=== PATIENT | male | born 1990 | race Caucasian/White ===

== ENCOUNTER 2019-10-23 13:36 | Inpatient (IN) | payer MEDICAID ==
[~2019-10-23] VITALS: Ht 172.7 cm; Wt 68.7 kg
[2019-10-23] MEDS ORDERED: SODIUM CHLORIDE 0.9% 2,150 ML IV ONE (13:53)
[2019-10-23 14:29] LABS: BASOPHILS % (AUTO) 0.1 % (0.0-2.0); EOSINOPHILS % (AUTO) 0 % (1.0-6.0); HEMATOCRIT 39.7 % (41-53); HEMOGLOBIN 13.2 g/dL (13.5-17.5); LYMPHOCYTES # (AUTO) 1.4 K/uL (1.0-4.8); MEAN CORPUSCULAR HEMOGLOBIN 29.9 pg (26.0-34.0); MEAN CORPUSCULAR HGB CONC 33.2 G/dL (31.0-37.0); MEAN CORPUSCULAR VOLUME 90 fL (80-100); MONOCYTES # (AUTO) 0.4 K/uL (0.1-1.0); MONOCYTES % (AUTO) 2.2 % (2.0-9.0); NEUTROPHILS % (AUTO) 89.7 % (40.0-70.0); PLATELET COUNT (AUTO) 377 K/uL (150-450); RED BLOOD CELL COUNT(AUTO) 4.41 MIL/uL (4.50-5.90); RED CELL DISTRIBUTION WIDTH 12.1 % (11.5-14.5)
[2019-10-23 14:39] LABS: ANION GAP 13 mmol/L (8-16); CARBON DIOXIDE 24 mmol/L (22-29); CHLORIDE 99 mmol/L (98-107); CREATININE 0.88 mg/dL (0.60-1.30); GLOMERULAR FILTR. RATE CALC > 60 mL/min (>60); GLUCOSE,RANDOM 139 mg/dL (70-110); POTASSIUM 3.6 mmol/L (3.5-5.1); SODIUM SERUM 136 mmol/L (136-145); UREA NITROGEN, BLOOD 10 mg/dL (7-18)
[2019-10-23 14:43] LABS: INR 1.2 (0.9-1.1); PROTHROMBIN TIME 11.8 SEC (9.4-11.6)
[2019-10-23 14:45] LABS: ALANINE AMINOTRANSFERASE 51 U/L (12-78); ALBUMIN 3.2 g/dL (3.4-5.0); ALKALINE PHOSPHATASE 131 U/L (46-116); ASPARTATE AMINOTRANSFERASE 44 U/L (15-37); BILIRUBIN,TOTAL 0.5 mg/dL (0.1-1.0); TOTAL PROTEIN, SERUM 8.2 g/dL (6.4-8.2)
[2019-10-23 14:47] LABS: LACTIC ACID 0.5 mmol/L (0.4-2.0)
[2019-10-23 14:54] LABS: APPEARANCE,URINE CLEAR (CLEAR); GLUCOSE, URINE (UA) NEGATIVE (NEGATIVE); KETONES,URINE TRACE mg/dL (NEGATIVE); LEUKOCYTE ESTERASE ,URINE NEGATIVE (NEGATIVE); NITRATE,URINE NEGATIVE (NEGATIVE); OCCULT BLOOD,URINE TRACE (NEGATIVE); PROTEIN,URINE SEE CONFIRM (NEGATIVE)
[2019-10-23] MEDS ORDERED: ACETAMINOPHEN 500 MG TABLET PO ONE (15:00)
[2019-10-23] MEDS ORDERED: CefTRIAXone SODIUM 2 GM in DEXTROSE 5%-WATER 50 ML IV ONE (15:00)
[2019-10-23] MEDS ORDERED: AZITHROMYCIN 500 MG/NS 250 ML IV ONE (15:00)
[2019-10-23 15:03] LABS: B-TYPE NATRIURETIC PEPTIDE 20 pg/mL (0-100)
[2019-10-23 15:14] LABS: INFLUENZA TYPE A NEGATIVE FOR TYPE A (NEGATIVE); INFLUENZA TYPE B NEGATIVE FOR TYPE B (NEGATIVE)
[2019-10-23 15:15] LABS: BILIRUBIN,URINE PRELIM. POSITIVE (NEGATIVE)
[2019-10-23] MEDS ORDERED: SODIUM CHLORIDE 0.9% 1,000 ML IV ONE (15:15)
[2019-10-23 15:19] LABS: SULFOSALICYLIC ACID,URINE 3+ (Negative)
[2019-10-23 15:20] LABS: BACTERIA,URINE Rare /HPF (None Seen); SQUAMOUS EPITHELIAL CELL,UR Few /LPF (None Seen); WBC,URINE 0-2 /HPF (0-5)
[2019-10-23 15:28] LABS: PLATELET MORPHOLOGY COMMENT GIANT PLTS PRESENT
[2019-10-23] MEDS ORDERED: ONDANSETRON HCL 4 MG/2 ML VIAL IVP PRN ×2 (15:30→17:15)
[2019-10-23] MEDS ORDERED: ACETAMINOPHEN 325 MG TABLET PO PRN ×2 (15:30→17:15)
[2019-10-23] MEDS ORDERED: ALBUTEROL SULFATE 2.5 MG/0.5 ML NEB SOLUTION NEB PRN (16:00)
[2019-10-23] MEDS ORDERED: IOVERSOL 320 MG/ML 100 ML VIAL ONE (16:02)
[2019-10-23] MEDS ORDERED: SODIUM CHLORIDE 0.9% 100 ML ONE (16:02)
[2019-10-23 17:36] LABS: ABG A-A DIFF O2 123.2 mmHg (10-20.0); ABG CARBOXYHEMOGLOBIN 0.6 % (0.0-3.0); ABG HCO3 21.3 mmol/L (22.0-26.0); ABG METHEMOGLOBIN 0.3 % (0.0-1.5); ABG OXYGEN CONTENT 17.4 mL/dL (15.0-23.0); ABG OXYGEN SATURATION 96.3 % (95.0-98.0); ABG OXYHEMOGLOBIN 95.4 % (94.0-100.0); ABG PCO2 29 mmHg (35-45); ABG PH 7.434 (7.350-7.450); ABG TOTAL HEMOGLOBIN 12.9 G/dL (12.0-18.0); PO2, ARTERIAL BG 99.3 mmHg (80.0-100.0); SOURCE, BLOOD GAS ARTERIAL; TEMPERATURE, FAHRENHEIT, BG 98.7 FAHREN (96.0-98.6)
[2019-10-23 17:37] LABS: O2 DEVICE,BLOOD GAS CANNULA (ROOM AIR); SITE, BLOOD GAS RT RADIAL
[2019-10-23] MEDS: MethylPREDNISolone SOD SUCC 125 MG/2 ML VIAL IVP SCH (17:56)
[2019-10-23] MEDS: DOCUSATE SODIUM 100 MG CAPSULE PO SCH (20:57)
[2019-10-24] VITALS (7 sets, daily range): BP systolic 103–146; BP diastolic 61–86
[2019-10-24] MEDS: MethylPREDNISolone SOD SUCC 125 MG/2 ML VIAL IVP SCH ×5 (00:02→23:43)
[2019-10-24] MEDS ORDERED: PNEUMOCOCCAL VACCINE POLYVALENT 0.5 ML VIAL [PPSV23] IM ONE (02:15)
[2019-10-24] MEDS ORDERED: INFLUENZA VIRUS VACCINE QVS 2019-20 (3YR+)/PF 60 MCG/0.5 ML SYRINGE IM ONE (02:15)
[2019-10-24 09:03] LABS: ANION GAP 12 mmol/L (8-16); CALCIUM, TOTAL 9.2 mg/dL (8.8-10.5); CARBON DIOXIDE 24 mmol/L (22-29); CHLORIDE 105 mmol/L (98-107); CREATININE 0.84 mg/dL (0.60-1.30); GLOMERULAR FILTR. RATE CALC > 60 mL/min (>60); GLUCOSE,RANDOM 197 mg/dL (70-110); POTASSIUM 3.9 mmol/L (3.5-5.1); SODIUM SERUM 141 mmol/L (136-145); UREA NITROGEN, BLOOD 14 mg/dL (7-18)
[2019-10-24] MEDS: FAMOTIDINE 20 MG TABLET PO SCH (09:07)
[2019-10-24] MEDS: DOCUSATE SODIUM 100 MG CAPSULE PO SCH ×2 (09:07→20:40)
[2019-10-24 09:09] LABS: BASOPHILS % (AUTO) 0.1 % (0.0-2.0); EOSINOPHILS % (AUTO) 0 % (1.0-6.0); HEMOGLOBIN 13.1 g/dL (13.5-17.5); LYMPHOCYTES # (AUTO) 0.7 K/uL (1.0-4.8); MEAN CORPUSCULAR HEMOGLOBIN 30.4 pg (26.0-34.0); MEAN CORPUSCULAR HGB CONC 33.6 G/dL (31.0-37.0); MEAN CORPUSCULAR VOLUME 91 fL (80-100); MONOCYTES # (AUTO) 0.3 K/uL (0.1-1.0); MONOCYTES % (AUTO) 1.7 % (2.0-9.0); NEUTROPHILS # (AUTO) 17.5 K/uL (1.8-7.7); PLATELET COUNT (AUTO) 391 K/uL (150-450); RED BLOOD CELL COUNT(AUTO) 4.31 MIL/uL (4.50-5.90); RED CELL DISTRIBUTION WIDTH 12.2 % (11.5-14.5)
[2019-10-24 09:10] LABS: NEUTROPHILS % (AUTO) 94.2 % (40.0-70.0)
[2019-10-24] MEDS ORDERED: SODIUM CHLORIDE 0.9% 250 ML IV ONE (13:59)
[2019-10-24] MEDS: CefTRIAXone 1 GM/DEXTROSE 50 ML IV SCH (14:01)
[2019-10-24] MEDS: AZITHROMYCIN 500 MG/NS 250 ML IV SCH (14:53)
[2019-10-25 04:56] VITALS: BP 127/82
[2019-10-25] MEDS: MethylPREDNISolone SOD SUCC 125 MG/2 ML VIAL IVP SCH ×3 (06:10→19:20)
[2019-10-25 07:30] VITALS: BP 128/72
[2019-10-25] MEDS: FAMOTIDINE 20 MG TABLET PO SCH (09:29)
[2019-10-25] MEDS: DOCUSATE SODIUM 100 MG CAPSULE PO SCH ×2 (09:29→21:11)
[2019-10-25 11:35] VITALS: BP 130/71
[2019-10-25 15:14] VITALS: BP 128/70
[2019-10-25] MEDS: AZITHROMYCIN 500 MG/NS 250 ML IV SCH (16:04)
[2019-10-25] MEDS: CefTRIAXone 1 GM/DEXTROSE 50 ML IV SCH (16:04)
[2019-10-25] MEDS ORDERED: SODIUM CHLORIDE 0.9% 500 ML IV ONE (16:05)
[2019-10-25] MEDS ORDERED: SODIUM CHLORIDE 3% 15 ML NEB SOLUTION NEB ONE (16:45)
[2019-10-25 19:25] VITALS: BP 132/80
[2019-10-25 23:40] VITALS: BP 121/81
[2019-10-26] MEDS: MethylPREDNISolone SOD SUCC 125 MG/2 ML VIAL IVP SCH ×3 (00:40→11:55)
[2019-10-26 04:50] VITALS: BP 117/69
[2019-10-26 07:00] VITALS: BP 105/67
[2019-10-26] MEDS: DOCUSATE SODIUM 100 MG CAPSULE PO SCH ×2 (08:32→20:22)
[2019-10-26] MEDS: FAMOTIDINE 20 MG TABLET PO SCH (08:32)
[2019-10-26 11:00] VITALS: BP 118/78
[2019-10-26 15:00] VITALS: BP 125/93
[2019-10-26] MEDS: CefTRIAXone 1 GM/DEXTROSE 50 ML IV SCH (15:12)
[2019-10-26] MEDS: AZITHROMYCIN 500 MG/NS 250 ML IV SCH (16:34)
[2019-10-26 20:12] VITALS: BP 122/80
[2019-10-26] MEDS: MethylPREDNISolone SOD SUCC 40 MG/ML VIAL IVP SCH (23:25)
[2019-10-26] MEDS: ACETAMINOPHEN 325 MG TABLET PO PRN (23:25)
[2019-10-26 23:45] VITALS: BP 133/89
[2019-10-27 05:49] VITALS: BP 147/96
[2019-10-27] MEDS: MethylPREDNISolone SOD SUCC 40 MG/ML VIAL IVP SCH (05:50)
[2019-10-27 07:47] VITALS: BP 108/78
[2019-10-27] MEDS: FAMOTIDINE 20 MG TABLET PO SCH (08:23)
[2019-10-27] MEDS: DOCUSATE SODIUM 100 MG CAPSULE PO SCH ×2 (08:23→21:24)
[2019-10-27] MEDS: PredniSONE 20 MG TABLET PO SCH (08:26)
[2019-10-27 09:26] LABS: QUANTIFERON+, POS. CRITERIA See Separate Report; QUANTIFERON, TB GOLD PLUS See Separate Report (Negative)
[2019-10-27 09:27] LABS: HIV 1-2 SCREEN 4TH GEN W/RFLX SEE SEPARATE REPORT
[2019-10-27 09:27] LABS: QUANTIFERON+, Nil Value See Separate Report; QUANTIFERON+,Mitogen Value See Separate Report; QUANTIFERON+,TB1 Antigen Value See Separate Report
[2019-10-27 11:08] VITALS: BP 114/64
[2019-10-27 11:46] LABS: BASOPHILS % (AUTO) 0.1 % (0.0-2.0); EOSINOPHILS % (AUTO) 0 % (1.0-6.0); HEMATOCRIT 40.7 % (41-53); HEMOGLOBIN 13.7 g/dL (13.5-17.5); LYMPHOCYTES # (AUTO) 0.5 K/uL (1.0-4.8); LYMPHOCYTES % (AUTO) 2.6 % (22.0-44.0); MEAN CORPUSCULAR HEMOGLOBIN 30.4 pg (26.0-34.0); MEAN CORPUSCULAR HGB CONC 33.6 G/dL (31.0-37.0); MEAN CORPUSCULAR VOLUME 90 fL (80-100); MONOCYTES # (AUTO) 0.2 K/uL (0.1-1.0); NEUTROPHILS # (AUTO) 18.6 K/uL (1.8-7.7); PLATELET COUNT (AUTO) 602 K/uL (150-450); RED BLOOD CELL COUNT(AUTO) 4.51 MIL/uL (4.50-5.90); RED CELL DISTRIBUTION WIDTH 12.2 % (11.5-14.5)
[2019-10-27 11:47] LABS: NEUTROPHILS % (AUTO) 96.3 % (40.0-70.0)
[2019-10-27 11:50] LABS: ANION GAP 11 mmol/L (8-16); CALCIUM, TOTAL 9.1 mg/dL (8.8-10.5); CARBON DIOXIDE 25 mmol/L (22-29); CHLORIDE 101 mmol/L (98-107); CREATININE 0.89 mg/dL (0.60-1.30); GLOMERULAR FILTR. RATE CALC > 60 mL/min (>60); GLUCOSE,RANDOM 136 mg/dL (70-110); POTASSIUM 4.2 mmol/L (3.5-5.1); SODIUM SERUM 137 mmol/L (136-145); UREA NITROGEN, BLOOD 18 mg/dL (7-18)
[2019-10-27 12:03] LABS: ALANINE AMINOTRANSFERASE 80 U/L (12-78); ALBUMIN 3.1 g/dL (3.4-5.0); ALKALINE PHOSPHATASE 100 U/L (46-116); ASPARTATE AMINOTRANSFERASE 21 U/L (15-37); BILIRUBIN,TOTAL 0.3 mg/dL (0.1-1.0); TOTAL PROTEIN, SERUM 8.2 g/dL (6.4-8.2)
[2019-10-27] MEDS: CefTRIAXone 1 GM/DEXTROSE 50 ML IV SCH (15:12)
[2019-10-27 15:20] VITALS: BP 132/71
[2019-10-27] MEDS: AZITHROMYCIN 500 MG/NS 250 ML IV SCH (16:15)
[2019-10-27 20:36] VITALS: BP 106/62
[2019-10-27] MEDS: ACETAMINOPHEN 325 MG TABLET PO PRN (21:24)
[2019-10-28] VITALS (7 sets, daily range): BP systolic 98–118; BP diastolic 58–69
[2019-10-28] MEDS: ACETAMINOPHEN 325 MG TABLET PO PRN ×3 (06:02→20:28)
[2019-10-28] MEDS ORDERED: SODIUM CHLORIDE 0.9% 1,000 ML IV ONE ×2 (06:12→06:15)
[2019-10-28] MEDS ORDERED: SODIUM CHLORIDE 0.9% 250 ML IV ONE (06:15)
[2019-10-28] MEDS ORDERED: SODIUM CHLORIDE 0.9% 250 ML IV SCH (06:30)
[2019-10-28 06:55] LABS: BASOPHILS % (AUTO) 0.2 % (0.0-2.0); EOSINOPHILS % (AUTO) 0.1 % (1.0-6.0); HEMATOCRIT 42.1 % (41-53); HEMOGLOBIN 14.2 g/dL (13.5-17.5); LYMPHOCYTES # (AUTO) 1.3 K/uL (1.0-4.8); LYMPHOCYTES % (AUTO) 6.8 % (22.0-44.0); MEAN CORPUSCULAR HGB CONC 33.7 G/dL (31.0-37.0); MEAN CORPUSCULAR VOLUME 89 fL (80-100); MONOCYTES # (AUTO) 0.2 K/uL (0.1-1.0); MONOCYTES % (AUTO) 1.1 % (2.0-9.0); NEUTROPHILS # (AUTO) 17.7 K/uL (1.8-7.7); PLATELET COUNT (AUTO) 647 K/uL (150-450); RED BLOOD CELL COUNT(AUTO) 4.74 MIL/uL (4.50-5.90); RED CELL DISTRIBUTION WIDTH 12.3 % (11.5-14.5)
[2019-10-28 07:13] LABS: ALANINE AMINOTRANSFERASE 67 U/L (12-78); ALBUMIN 2.8 g/dL (3.4-5.0); ALKALINE PHOSPHATASE 102 U/L (46-116); ANION GAP 8 mmol/L (8-16); ASPARTATE AMINOTRANSFERASE 22 U/L (15-37); BILIRUBIN,TOTAL 0.4 mg/dL (0.1-1.0); CALCIUM, TOTAL 8.5 mg/dL (8.8-10.5); CARBON DIOXIDE 25 mmol/L (22-29); CHLORIDE 99 mmol/L (98-107); CREATININE 0.93 mg/dL (0.60-1.30); GLOMERULAR FILTR. RATE CALC > 60 mL/min (>60); GLUCOSE,RANDOM 102 mg/dL (70-110); POTASSIUM 3.7 mmol/L (3.5-5.1); SODIUM SERUM 132 mmol/L (136-145); TOTAL PROTEIN, SERUM 7.9 g/dL (6.4-8.2); UREA NITROGEN, BLOOD 19 mg/dL (7-18)
[2019-10-28 07:22] LABS: NEUTROPHILS % (AUTO) 91.8 % (40.0-70.0)
[2019-10-28 08:58] LABS: APPEARANCE,URINE CLEAR (CLEAR); BILIRUBIN,URINE NEGATIVE (NEGATIVE); GLUCOSE, URINE (UA) NEGATIVE (NEGATIVE); KETONES,URINE NEGATIVE (NEGATIVE); LEUKOCYTE ESTERASE ,URINE NEGATIVE (NEGATIVE); NITRATE,URINE NEGATIVE (NEGATIVE); OCCULT BLOOD,URINE NEGATIVE (NEGATIVE); PROTEIN,URINE NEGATIVE (NEGATIVE)
[2019-10-28 09:04] LABS: BACTERIA,URINE None Seen /HPF (None Seen); RBC,URINE None Seen /HPF (0-2); WBC,URINE None Seen /HPF (0-5)
[2019-10-28] MEDS: FAMOTIDINE 20 MG TABLET PO SCH (09:52)
[2019-10-28] MEDS: PredniSONE 20 MG TABLET PO SCH ×2 (09:52→20:27)
[2019-10-28] MEDS: DOCUSATE SODIUM 100 MG CAPSULE PO SCH ×2 (09:52→20:27)
[2019-10-28] MEDS ORDERED: *CLINICAL-BACTRIM/SEPTRA IVPB DOSING CLINICAL ONE (11:45)
[2019-10-28 12:59] LABS: ABG A-A DIFF O2 59.3 mmHg (10-20.0); ABG BASE EXCESS -3.2 mmol/L (-2.0-3.0); ABG CARBOXYHEMOGLOBIN 0.7 % (0.0-3.0); ABG HCO3 22.7 mmol/L (22.0-26.0); ABG METHEMOGLOBIN 0.3 % (0.0-1.5); ABG OXYGEN CONTENT 17.9 mL/dL (15.0-23.0); ABG OXYHEMOGLOBIN 88.1 % (94.0-100.0); ABG PCO2 29 mmHg (35-45); ABG PH 7.472 (7.350-7.450); ABG TOTAL HEMOGLOBIN 14.5 G/dL (12.0-18.0); PO2, ARTERIAL BG 56.2 mmHg (80.0-100.0); SOURCE, BLOOD GAS ARTERIAL; TEMPERATURE, FAHRENHEIT, BG 98.6 FAHREN (96.0-98.6)
[2019-10-28 13:01] LABS: SITE, BLOOD GAS RT RADIAL
[2019-10-28] MEDS: SULFAMETHOX/TRIMETH 20 ML in DEXTROSE 5%-WATER 250 ML IV SCH ×2 (16:17→22:04)
[2019-10-28] MEDS: AZITHROMYCIN 500 MG/NS 250 ML IV SCH (17:25)
[2019-10-28] MEDS: ALPRAZolam 0.25 MG TABLET PO PRN (20:27)
[2019-10-29 00:01] VITALS: BP 99/65
[2019-10-29 03:49] VITALS: BP 104/63
[2019-10-29] MEDS ORDERED: SODIUM CHLORIDE 3% 15 ML NEB SOLUTION NEB ONE (03:56)
[2019-10-29] MEDS: SULFAMETHOX/TRIMETH 20 ML in DEXTROSE 5%-WATER 250 ML IV SCH ×4 (04:23→22:27)
[2019-10-29 06:57] LABS: BASOPHILS % (AUTO) 0.2 % (0.0-2.0); EOSINOPHILS % (AUTO) 0 % (1.0-6.0); HEMATOCRIT 40.5 % (41-53); HEMOGLOBIN 13.8 g/dL (13.5-17.5); LYMPHOCYTES # (AUTO) 0.6 K/uL (1.0-4.8); LYMPHOCYTES % (AUTO) 3.3 % (22.0-44.0); MEAN CORPUSCULAR HGB CONC 34.1 G/dL (31.0-37.0); MEAN CORPUSCULAR VOLUME 91 fL (80-100); MONOCYTES # (AUTO) 0.3 K/uL (0.1-1.0); MONOCYTES % (AUTO) 1.5 % (2.0-9.0); NEUTROPHILS # (AUTO) 16.8 K/uL (1.8-7.7); PLATELET COUNT (AUTO) 616 K/uL (150-450); RED BLOOD CELL COUNT(AUTO) 4.47 MIL/uL (4.50-5.90); RED CELL DISTRIBUTION WIDTH 12.2 % (11.5-14.5)
[2019-10-29 07:26] LABS: PLATELET MORPHOLOGY COMMENT GIANT PLTS PRESENT
[2019-10-29 07:31] LABS: ALANINE AMINOTRANSFERASE 63 U/L (12-78); ALBUMIN 2.6 g/dL (3.4-5.0); ALKALINE PHOSPHATASE 100 U/L (46-116); ANION GAP 9 mmol/L (8-16); ASPARTATE AMINOTRANSFERASE 19 U/L (15-37); BILIRUBIN,TOTAL 0.2 mg/dL (0.1-1.0); CALCIUM, TOTAL 8.4 mg/dL (8.8-10.5); CARBON DIOXIDE 26 mmol/L (22-29); CHLORIDE 99 mmol/L (98-107); CREATININE 0.91 mg/dL (0.60-1.30); GLOMERULAR FILTR. RATE CALC > 60 mL/min (>60); GLUCOSE,RANDOM 164 mg/dL (70-110); SODIUM SERUM 134 mmol/L (136-145); TOTAL PROTEIN, SERUM 7.6 g/dL (6.4-8.2); UREA NITROGEN, BLOOD 16 mg/dL (7-18)
[2019-10-29 07:57] VITALS: BP 130/58
[2019-10-29] MEDS: DOCUSATE SODIUM 100 MG CAPSULE PO SCH ×2 (08:12→20:36)
[2019-10-29] MEDS: PredniSONE 20 MG TABLET PO SCH ×2 (08:14→20:36)
[2019-10-29] MEDS: FAMOTIDINE 20 MG TABLET PO SCH (08:15)
[2019-10-29] MEDS: ALPRAZolam 0.25 MG TABLET PO PRN ×2 (08:19→20:43)
[2019-10-29 16:13] VITALS: BP 109/68
[2019-10-29] MEDS: AZITHROMYCIN 500 MG/NS 250 ML IV SCH (17:44)
[2019-10-29 20:09] VITALS: BP 123/77
[2019-10-30 00:08] VITALS: BP 119/52
[2019-10-30] MEDS: SULFAMETHOX/TRIMETH 20 ML in DEXTROSE 5%-WATER 250 ML IV SCH ×4 (04:08→22:25)
[2019-10-30 04:22] VITALS: BP 106/53
[2019-10-30 06:51] LABS: BASOPHILS % (AUTO) 0.1 % (0.0-2.0); EOSINOPHILS % (AUTO) 0 % (1.0-6.0); HEMATOCRIT 43.7 % (41-53); HEMOGLOBIN 14.9 g/dL (13.5-17.5); LYMPHOCYTES # (AUTO) 1.1 K/uL (1.0-4.8); LYMPHOCYTES % (AUTO) 5.5 % (22.0-44.0); MEAN CORPUSCULAR HEMOGLOBIN 30.5 pg (26.0-34.0); MEAN CORPUSCULAR HGB CONC 34.1 G/dL (31.0-37.0); MEAN CORPUSCULAR VOLUME 90 fL (80-100); MONOCYTES # (AUTO) 0.4 K/uL (0.1-1.0); NEUTROPHILS # (AUTO) 18.2 K/uL (1.8-7.7); RED BLOOD CELL COUNT(AUTO) 4.87 MIL/uL (4.50-5.90); RED CELL DISTRIBUTION WIDTH 12.4 % (11.5-14.5)
[2019-10-30 07:13] LABS: ALANINE AMINOTRANSFERASE 116 U/L (12-78); ALKALINE PHOSPHATASE 104 U/L (46-116); ANION GAP 12 mmol/L (8-16); ASPARTATE AMINOTRANSFERASE 36 U/L (15-37); BILIRUBIN,TOTAL 0.2 mg/dL (0.1-1.0); CALCIUM, TOTAL 8.7 mg/dL (8.8-10.5); CARBON DIOXIDE 21 mmol/L (22-29); CHLORIDE 98 mmol/L (98-107); CREATININE 0.96 mg/dL (0.60-1.30); GLOMERULAR FILTR. RATE CALC > 60 mL/min (>60); GLUCOSE,RANDOM 129 mg/dL (70-110); SODIUM SERUM 131 mmol/L (136-145); TOTAL PROTEIN, SERUM 8.2 g/dL (6.4-8.2); UREA NITROGEN, BLOOD 15 mg/dL (7-18)
[2019-10-30 07:57] LABS: NEUTROPHILS % (AUTO) 92.4 % (40.0-70.0); PLATELET COUNT (AUTO) 835 K/uL (150-450)
[2019-10-30 08:41] VITALS: BP 102/63
[2019-10-30] MEDS: DOCUSATE SODIUM 100 MG CAPSULE PO SCH ×2 (09:00→21:12)
[2019-10-30] MEDS: PredniSONE 20 MG TABLET PO SCH ×2 (09:35→21:13)
[2019-10-30] MEDS: FAMOTIDINE 20 MG TABLET PO SCH (09:35)
[2019-10-30] MEDS: ALPRAZolam 0.25 MG TABLET PO PRN ×2 (10:00→21:18)
[2019-10-30 12:41] VITALS: BP 102/61
[2019-10-30 15:01] VITALS: BP 110/70
[2019-10-30 16:38] LABS: LEGIONELLA PNEUMO AG URINE Negative (Negative)
[2019-10-30] MEDS: AZITHROMYCIN 500 MG/NS 250 ML IV SCH (18:28)
[2019-10-30 20:42] VITALS: BP 119/76
[2019-10-31 00:29] VITALS: BP 128/70
[2019-10-31] MEDS: SULFAMETHOX/TRIMETH 20 ML in DEXTROSE 5%-WATER 250 ML IV SCH ×4 (04:10→22:46)
[2019-10-31 06:08] VITALS: BP 121/69
[2019-10-31 07:15] LABS: BASOPHILS % (AUTO) 0.1 % (0.0-2.0); EOSINOPHILS % (AUTO) 0 % (1.0-6.0); HEMATOCRIT 47.9 % (41-53); HEMOGLOBIN 16.2 g/dL (13.5-17.5); LYMPHOCYTES # (AUTO) 1.3 K/uL (1.0-4.8); LYMPHOCYTES % (AUTO) 6.2 % (22.0-44.0); MEAN CORPUSCULAR HEMOGLOBIN 30.4 pg (26.0-34.0); MEAN CORPUSCULAR HGB CONC 33.8 G/dL (31.0-37.0); MEAN CORPUSCULAR VOLUME 90 fL (80-100); MONOCYTES # (AUTO) 0.3 K/uL (0.1-1.0); MONOCYTES % (AUTO) 1.4 % (2.0-9.0); NEUTROPHILS # (AUTO) 19.8 K/uL (1.8-7.7); RED BLOOD CELL COUNT(AUTO) 5.33 MIL/uL (4.50-5.90); RED CELL DISTRIBUTION WIDTH 12.3 % (11.5-14.5)
[2019-10-31 07:22] LABS: ALANINE AMINOTRANSFERASE 113 U/L (12-78); ALBUMIN 3.2 g/dL (3.4-5.0); ALKALINE PHOSPHATASE 108 U/L (46-116); ANION GAP 10 mmol/L (8-16); ASPARTATE AMINOTRANSFERASE 28 U/L (15-37); BILIRUBIN,TOTAL 0.2 mg/dL (0.1-1.0); CALCIUM, TOTAL 9.1 mg/dL (8.8-10.5); CARBON DIOXIDE 24 mmol/L (22-29); CHLORIDE 96 mmol/L (98-107); CREATININE 1.02 mg/dL (0.60-1.30); GLOMERULAR FILTR. RATE CALC > 60 mL/min (>60); GLUCOSE,RANDOM 124 mg/dL (70-110); POTASSIUM 4.9 mmol/L (3.5-5.1); SODIUM SERUM 130 mmol/L (136-145); TOTAL PROTEIN, SERUM 8.6 g/dL (6.4-8.2); UREA NITROGEN, BLOOD 15 mg/dL (7-18)
[2019-10-31 07:32] LABS: NEUTROPHILS % (AUTO) 92.3 % (40.0-70.0); PLATELET COUNT (AUTO) 840 K/uL (150-450)
[2019-10-31 07:33] LABS: PLATELET MORPHOLOGY COMMENT GIANT PLTS PRESENT
[2019-10-31 08:32] VITALS: BP 123/72
[2019-10-31] MEDS: FAMOTIDINE 20 MG TABLET PO SCH (08:39)
[2019-10-31] MEDS: PredniSONE 20 MG TABLET PO SCH ×2 (08:39→20:51)
[2019-10-31] MEDS: DOCUSATE SODIUM 100 MG CAPSULE PO SCH ×2 (08:39→20:51)
[2019-10-31] MEDS: ALPRAZolam 0.25 MG TABLET PO PRN ×2 (11:07→20:54)
[2019-10-31 11:25] VITALS: BP 130/79
[2019-10-31 13:08] LABS: ORGANISM ID Not indicated.; S PNEUMO SOURCE Urine; STREP PNEUMONIAE AG URINE Negative (Negative); STREP.PNEUMO BODY FLUID CULT. Not Indicated
[2019-10-31 15:51] VITALS: BP 116/73
[2019-10-31] MEDS: HEPARIN SODIUM,PORCINE 5,000 UNITS/ML VIAL SQ SCH ×2 (17:27→23:51)
[2019-10-31 19:49] VITALS: BP 125/70
[2019-11-01] VITALS (7 sets, daily range): BP systolic 104–143; BP diastolic 68–81
[2019-11-01] MEDS: SULFAMETHOX/TRIMETH 20 ML in DEXTROSE 5%-WATER 250 ML IV SCH ×2 (05:17→10:13)
[2019-11-01 06:58] LABS: BASOPHILS % (AUTO) 0.1 % (0.0-2.0); EOSINOPHILS % (AUTO) 0 % (1.0-6.0); HEMOGLOBIN 15.5 g/dL (13.5-17.5); LYMPHOCYTES # (AUTO) 1.2 K/uL (1.0-4.8); LYMPHOCYTES % (AUTO) 6.4 % (22.0-44.0); MEAN CORPUSCULAR HEMOGLOBIN 29.9 pg (26.0-34.0); MEAN CORPUSCULAR HGB CONC 33.8 G/dL (31.0-37.0); MEAN CORPUSCULAR VOLUME 89 fL (80-100); MONOCYTES # (AUTO) 0.4 K/uL (0.1-1.0); NEUTROPHILS # (AUTO) 16.6 K/uL (1.8-7.7); RED BLOOD CELL COUNT(AUTO) 5.19 MIL/uL (4.50-5.90); RED CELL DISTRIBUTION WIDTH 12.4 % (11.5-14.5)
[2019-11-01 07:24] LABS: NEUTROPHILS % (AUTO) 91.5 % (40.0-70.0)
[2019-11-01 07:26] LABS: PLATELET COUNT (AUTO) 850 K/uL (150-450)
[2019-11-01 07:27] LABS: ALANINE AMINOTRANSFERASE 76 U/L (12-78); ALBUMIN 3.2 g/dL (3.4-5.0); ALKALINE PHOSPHATASE 95 U/L (46-116); ANION GAP 11 mmol/L (8-16); ASPARTATE AMINOTRANSFERASE 14 U/L (15-37); BILIRUBIN,TOTAL 0.2 mg/dL (0.1-1.0); CALCIUM, TOTAL 8.6 mg/dL (8.8-10.5); CARBON DIOXIDE 23 mmol/L (22-29); CHLORIDE 95 mmol/L (98-107); CREATININE 1.13 mg/dL (0.60-1.30); GLOMERULAR FILTR. RATE CALC > 60 mL/min (>60); GLUCOSE,RANDOM 116 mg/dL (70-110); POTASSIUM 4.5 mmol/L (3.5-5.1); SODIUM SERUM 129 mmol/L (136-145); TOTAL PROTEIN, SERUM 8.2 g/dL (6.4-8.2); UREA NITROGEN, BLOOD 17 mg/dL (7-18)
[2019-11-01] MEDS: HEPARIN SODIUM,PORCINE 5,000 UNITS/ML VIAL SQ SCH ×3 (08:22→23:37)
[2019-11-01] MEDS: ALPRAZolam 0.25 MG TABLET PO PRN ×2 (08:23→20:17)
[2019-11-01] MEDS: DOCUSATE SODIUM 100 MG CAPSULE PO SCH ×2 (08:23→20:18)
[2019-11-01] MEDS: PredniSONE 20 MG TABLET PO SCH ×2 (08:23→20:18)
[2019-11-01] MEDS: FAMOTIDINE 20 MG TABLET PO SCH (08:23)
[2019-11-01 09:08] LABS: U HISTOPLASMA GALACTOMANNAN AG <0.5 (<0.5 ng/mL)
[2019-11-01] MEDS: PYRAZINAMIDE 500 MG TABLET PO SCH (16:24)
[2019-11-01] MEDS: PYRIDOXINE HCL 50 MG TABLET PO SCH (16:25)
[2019-11-01] MEDS: ETHAMBUTOL HCL 400 MG TABLET PO SCH (16:25)
[2019-11-01] MEDS: RIFAMPIN 300 MG CAPSULE PO SCH (16:25)
[2019-11-01] MEDS: ISONIAZID 300 MG TABLET PO SCH (16:25)
[2019-11-01] MEDS: SULFAMETHOX/TRIMETH DS 800-160 MG/TABLET PO SCH ×2 (17:55→23:37)
[2019-11-02 04:33] VITALS: BP 115/74
[2019-11-02] MEDS: SULFAMETHOX/TRIMETH DS 800-160 MG/TABLET PO SCH ×4 (06:01→23:44)
[2019-11-02 06:26] LABS: BASOPHILS % (AUTO) 0.1 % (0.0-2.0); EOSINOPHILS % (AUTO) 0 % (1.0-6.0); HEMATOCRIT 47.1 % (41-53); LYMPHOCYTES # (AUTO) 0.9 K/uL (1.0-4.8); LYMPHOCYTES % (AUTO) 4.3 % (22.0-44.0); MEAN CORPUSCULAR HEMOGLOBIN 30.5 pg (26.0-34.0); MEAN CORPUSCULAR VOLUME 90 fL (80-100); MONOCYTES # (AUTO) 0.3 K/uL (0.1-1.0); MONOCYTES % (AUTO) 1.6 % (2.0-9.0); NEUTROPHILS # (AUTO) 19.8 K/uL (1.8-7.7); RED BLOOD CELL COUNT(AUTO) 5.25 MIL/uL (4.50-5.90); RED CELL DISTRIBUTION WIDTH 12.3 % (11.5-14.5)
[2019-11-02 06:54] LABS: ALANINE AMINOTRANSFERASE 59 U/L (12-78); ALBUMIN 3.3 g/dL (3.4-5.0); ALKALINE PHOSPHATASE 94 U/L (46-116); ANION GAP 8 mmol/L (8-16); ASPARTATE AMINOTRANSFERASE 13 U/L (15-37); BILIRUBIN,TOTAL 0.5 mg/dL (0.1-1.0); CALCIUM, TOTAL 9.1 mg/dL (8.8-10.5); CARBON DIOXIDE 26 mmol/L (22-29); CHLORIDE 94 mmol/L (98-107); CREATININE 1.06 mg/dL (0.60-1.30); FREE T4 (FREE THYROXINE) 1.06 ng/dL (0.76-1.46); GLOMERULAR FILTR. RATE CALC > 60 mL/min (>60); GLUCOSE,RANDOM 99 mg/dL (70-110); POTASSIUM 5.4 mmol/L (3.5-5.1); SODIUM SERUM 128 mmol/L (136-145); THYROID STIMULATING HORMONE 0.59 uIU/mL (0.36-3.74); TOTAL PROTEIN, SERUM 8.4 g/dL (6.4-8.2); UREA NITROGEN, BLOOD 24 mg/dL (7-18)
[2019-11-02 07:10] VITALS: BP 119/71
[2019-11-02 07:20] LABS: PLATELET COUNT (AUTO) 808 K/uL (150-450); PLATELET MORPHOLOGY COMMENT GIANT PLTS PRESENT
[2019-11-02] MEDS: ONDANSETRON HCL 4 MG/2 ML VIAL IVP PRN ×2 (08:26→09:36)
[2019-11-02] MEDS: ALPRAZolam 0.25 MG TABLET PO PRN (08:31)
[2019-11-02] MEDS: RIFAMPIN 300 MG CAPSULE PO SCH (08:32)
[2019-11-02] MEDS: PYRAZINAMIDE 500 MG TABLET PO SCH (08:33)
[2019-11-02] MEDS: PredniSONE 20 MG TABLET PO SCH (08:33)
[2019-11-02] MEDS: ISONIAZID 300 MG TABLET PO SCH (08:34)
[2019-11-02] MEDS: FAMOTIDINE 20 MG TABLET PO SCH (08:34)
[2019-11-02] MEDS: ETHAMBUTOL HCL 400 MG TABLET PO SCH (08:35)
[2019-11-02] MEDS: HEPARIN SODIUM,PORCINE 5,000 UNITS/ML VIAL SQ SCH ×2 (08:36→20:24)
[2019-11-02] MEDS: PYRIDOXINE HCL 50 MG TABLET PO SCH (08:37)
[2019-11-02] MEDS: DOCUSATE SODIUM 100 MG CAPSULE PO SCH ×2 (09:00→20:26)
[2019-11-02 10:58] VITALS: BP 140/85
[2019-11-02 16:09] VITALS: BP 137/85
[2019-11-02 20:07] VITALS: BP 138/87
[2019-11-02] MEDS: SERTRALINE HCL 50 MG TABLET PO SCH (20:23)
[2019-11-02 20:27] LABS: CREATININE,URINE RANDOM 66.3 mg/dL (30.0-125.0)
[2019-11-03 00:15] VITALS: BP 119/74
[2019-11-03 05:26] VITALS: BP 126/70
[2019-11-03] MEDS: SULFAMETHOX/TRIMETH DS 800-160 MG/TABLET PO SCH ×4 (05:57→23:26)
[2019-11-03 07:17] LABS: BASOPHILS % (AUTO) 0.1 % (0.0-2.0); EOSINOPHILS % (AUTO) 0.1 % (1.0-6.0); HEMOGLOBIN 16.4 g/dL (13.5-17.5); LYMPHOCYTES # (AUTO) 1.8 K/uL (1.0-4.8); LYMPHOCYTES % (AUTO) 10.2 % (22.0-44.0); MEAN CORPUSCULAR HEMOGLOBIN 30.2 pg (26.0-34.0); MEAN CORPUSCULAR HGB CONC 34.1 G/dL (31.0-37.0); MEAN CORPUSCULAR VOLUME 89 fL (80-100); MONOCYTES # (AUTO) 0.3 K/uL (0.1-1.0); MONOCYTES % (AUTO) 1.8 % (2.0-9.0); NEUTROPHILS # (AUTO) 15.9 K/uL (1.8-7.7); RED BLOOD CELL COUNT(AUTO) 5.41 MIL/uL (4.50-5.90); RED CELL DISTRIBUTION WIDTH 12.6 % (11.5-14.5)
[2019-11-03 07:46] LABS: ALANINE AMINOTRANSFERASE 46 U/L (12-78); ALBUMIN 3.4 g/dL (3.4-5.0); ALKALINE PHOSPHATASE 104 U/L (46-116); ANION GAP 13 mmol/L (8-16); ASPARTATE AMINOTRANSFERASE 16 U/L (15-37); BILIRUBIN,TOTAL 0.3 mg/dL (0.1-1.0); CALCIUM, TOTAL 8.8 mg/dL (8.8-10.5); CARBON DIOXIDE 22 mmol/L (22-29); CHLORIDE 94 mmol/L (98-107); CREATININE 1.27 mg/dL (0.60-1.30); GLOMERULAR FILTR. RATE CALC > 60 mL/min (>60); GLUCOSE,RANDOM 79 mg/dL (70-110); POTASSIUM 4.5 mmol/L (3.5-5.1); SODIUM SERUM 129 mmol/L (136-145); TOTAL PROTEIN, SERUM 8.2 g/dL (6.4-8.2); UREA NITROGEN, BLOOD 24 mg/dL (7-18)
[2019-11-03 07:54] LABS: NEUTROPHILS % (AUTO) 87.8 % (40.0-70.0); PLATELET COUNT (AUTO) 826 K/uL (150-450)
[2019-11-03 08:19] VITALS: BP 136/95
[2019-11-03] MEDS: ONDANSETRON HCL 4 MG/2 ML VIAL IVP PRN (08:20)
[2019-11-03] MEDS: FAMOTIDINE 20 MG TABLET PO SCH (08:22)
[2019-11-03] MEDS: RIFAMPIN 300 MG CAPSULE PO SCH (08:22)
[2019-11-03] MEDS: ISONIAZID 300 MG TABLET PO SCH (08:23)
[2019-11-03] MEDS: PYRIDOXINE HCL 50 MG TABLET PO SCH (08:23)
[2019-11-03] MEDS: ETHAMBUTOL HCL 400 MG TABLET PO SCH (08:23)
[2019-11-03] MEDS: PredniSONE 20 MG TABLET PO SCH (08:23)
[2019-11-03] MEDS: DOCUSATE SODIUM 100 MG CAPSULE PO SCH ×2 (08:23→21:10)
[2019-11-03] MEDS: PYRAZINAMIDE 500 MG TABLET PO SCH (08:23)
[2019-11-03] MEDS: HEPARIN SODIUM,PORCINE 5,000 UNITS/ML VIAL SQ SCH ×2 (08:24→21:10)
[2019-11-03 11:35] VITALS: BP 122/82
[2019-11-03] MEDS: CARVEDILOL 6.25 MG TABLET PO SCH ×2 (12:06→21:10)
[2019-11-03 16:00] VITALS: BP 124/84
[2019-11-03] MEDS: SERTRALINE HCL 50 MG TABLET PO SCH (21:10)
[2019-11-03 23:28] VITALS: BP 130/89
[2019-11-04] MEDS: ONDANSETRON HCL 4 MG/2 ML VIAL IVP PRN ×2 (01:17→08:34)
[2019-11-04] MEDS: SULFAMETHOX/TRIMETH DS 800-160 MG/TABLET PO SCH ×2 (05:54→12:18)
[2019-11-04 06:01] VITALS: BP 104/67
[2019-11-04 08:22] VITALS: BP 119/83
[2019-11-04] MEDS: DOCUSATE SODIUM 100 MG CAPSULE PO SCH (08:31)
[2019-11-04] MEDS: ALPRAZolam 0.25 MG TABLET PO PRN (08:31)
[2019-11-04] MEDS: FAMOTIDINE 20 MG TABLET PO SCH (08:32)
[2019-11-04] MEDS: PredniSONE 20 MG TABLET PO SCH (08:32)
[2019-11-04] MEDS: HEPARIN SODIUM,PORCINE 5,000 UNITS/ML VIAL SQ SCH (08:33)
[2019-11-04] MEDS: ETHAMBUTOL HCL 400 MG TABLET PO SCH (08:33)
[2019-11-04] MEDS: PYRIDOXINE HCL 50 MG TABLET PO SCH (08:34)
[2019-11-04] MEDS: RIFAMPIN 300 MG CAPSULE PO SCH (08:34)
[2019-11-04] MEDS: ISONIAZID 300 MG TABLET PO SCH (08:35)
[2019-11-04] MEDS: PYRAZINAMIDE 500 MG TABLET PO SCH (08:35)
[2019-11-04 11:33] VITALS: BP 125/75
[2019-11-04] MEDS: CARVEDILOL 6.25 MG TABLET PO SCH (12:17)
[2019-11-04] MEDS ORDERED: CARV6 PO (14:32)
[2019-11-04] MEDS ORDERED: SERT50TA12 PO (14:33)
[2019-11-04] MEDS ORDERED: PRED20 PO (14:33)
[2019-11-04] MEDS ORDERED: SULF1TAB42 PO (14:35)
[2019-11-07] MEDS ORDERED: PredniSONE 20 MG TABLET PO SCH (09:00)
== END 2019-11-04 17:40 | disposition home or self-care (01) | DRG 890 ==
LOC: EMS 13:38 → ICU 23:00 → 4E 23:44 → 5S 10-28 07:38
PROVIDERS: ADMIT Internal Medicine; ATTEND Internal Medicine
PROC: 3E02340 Introduction of Influenza Vaccine into Muscle, Percutaneous Approach (ICD-10-PCS; principal; 2019-11-03)
PROC: 3E0234Z Introduction of Serum, Toxoid and Vaccine into Muscle, Percutaneous Approach (ICD-10-PCS; 2019-11-04)
DX: B20 Human immunodeficiency virus [HIV] disease (principal); J96.01 Acute respiratory failure with hypoxia; A41.9 Sepsis, unspecified organism; J15.6 Pneumonia due to other Gram-negative bacteria; E44.0 Moderate protein-calorie malnutrition; F19.90 Other psychoactive substance use, unspecified, uncomplicated; E87.1 Hypo-osmolality and hyponatremia; F32.9 Major depressive disorder, single episode, unspecified; F43.23 Adjustment disorder with mixed anxiety and depressed mood; J68.9 Unspecified respiratory condition due to chemicals, gases, fumes and vapors; X58.XXXA Exposure to other specified factors, initial encounter; Z78.9 Other specified health status; Z79.899 Other long term (current) drug therapy; Z86.11 Personal history of tuberculosis; Z23 Encounter for immunization; Y93.89 Activity, other specified; Y92.89 Other specified places as the place of occurrence of the external cause; Y99.8 Other external cause status; Z68.23 Body mass index [BMI] 23.0-23.9, adult
CPT/HCPCS: 36600; 71275; 82570; 82805; 83036; 83605; 83615; 83935; 84145; 84300; 84439; 84443; 86361; 86403; 86480; 86635; 86644; 86645; 86701; 86702; 86738; 87015; 87040; 87070; 87081; 87205; 87206; 87305; 87385; 87389; 87449; 87556; 87804; 87899; 88108; 88312; 90686; 90732; 93005; 93306; 94640; 96365; 99291; G0378; J0456; J0696; J1644; J2405; J2920; J2930; J3490; J7030; J7040; J7050; J7060